=== PATIENT | male | born 1990 | race Caucasian/White ===

== ENCOUNTER 2018-11-06 20:42 | Emergency (ER) | payer OTHER ==
[~2018-11-06] VITALS: Ht 190.5 cm; Wt 91.0 kg
[~2018-11-06 20:42] MED LIST: MMR II SC; ULTRAM50 M1 PO
[2018-11-06 21:53] LABS: ALBUMIN 4.4 g/dL (3.2-5.0); ANION GAP 18 (6-22 (CALC)); BUN 12 mg/dL (9-20); BUN/CREATININE RATIO 10 (12-20 (CALC)); CARBON DIOXIDE 26 mmol/l (22-30); CHLORIDE 99 mmol/l (95-108); CREATININE 1.2 mg/dL (0.7-1.3); GFR > 60 ML/MIN (>=60 (CALC)); GFR FOR AFR.AMER. > 60 ML/MIN (>=60 (CALC)); POTASSIUM 4.4 mmol/l (3.5-5.1); SGOT/AST 27 u/l (17-59); SODIUM 139 mmol/l (137-146); TOTAL PROTEIN 7.6 g/dL (6.3-8.2)
[2018-11-06 21:54] LABS: ALKALINE PHOSPHATASE 67 u/l (38-126); BILIRUBIN, TOTAL 0.8 mg/dL (0.0-1.4)
[2018-11-06] MEDS ORDERED: CEPHALEXIN500 M1 PO (22:11)
[2018-11-06] MEDS ORDERED: ULTRAM50 M1 PO (22:12)
[2018-11-06 22:32] LABS: HEMATOCRIT 43.3 % (39.0-50.0); HEMOGLOBIN 14.5 g/dl (14.0-18.0); IMMATURE GRANULOCYTES 0.5 % (0.0-5.0); MEAN CELL VOLUME 90.2 fL CALC (80.0-100.0); MEAN CORPUSCULAR HGB 30.2 pG CALC (26.0-32.0); MEAN CORPUSCULAR HGB CONC 33.5 g/L CALC (32.0-36.0); NEUT# 8.4 thou/uL (1.82-7.42); RED BLOOD COUNT 4.8 mill/uL (4.70-6.10); RED CELL DISTRI WIDTH 12.8 % (11.5-15.5)
[2018-11-06] MEDS ORDERED: ROBITUSSIN AC10 ML PO (22:57)
[2018-11-06] MEDS ORDERED: ZITHROMAX250 MG PO (22:57)
[2018-11-06 23:40] VITALS: BP 129/75
== END 2018-11-06 23:40 | disposition home or self-care (01) | DRG 195 ==
LOC: ED 20:42
PROVIDERS: Emergency Medicine
DX: J18.9 Pneumonia, unspecified organism (principal)

== ENCOUNTER 2020-12-11 05:10 | Emergency (ER) | payer OTHER ==
[~2020-12-11] VITALS: Ht 193 cm; Wt 100.0 kg
[~2020-12-11 05:10] MED LIST changes: +CEPHALEXIN500 M1 PO; +ROBITUSSIN AC10 ML PO; +ZITHROMAX250 MG PO
[2020-12-11] MEDS ORDERED: TORADOL PO (06:15)
[2020-12-11 06:34] VITALS: BP 137/81
== END 2020-12-11 06:40 | disposition home or self-care (01) | DRG 563 ==
LOC: ED 05:10
DX: S29.011A Strain of muscle and tendon of front wall of thorax, initial encounter (principal); F17.200 Nicotine dependence, unspecified, uncomplicated; X58.XXXA Exposure to other specified factors, initial encounter; Y93.83 Activity, rough housing and horseplay